=== PATIENT | male | born 1990 | race Two or more races ===

== ENCOUNTER 2018-02-12 14:24 | Emergency (ER) | payer MEDICAID ==
[~2018-02-12] VITALS: Ht 172.7 cm; Wt 79.4 kg
[2018-02-12] MEDS ORDERED: CIPROFLOXACIN HCL 500 MG TAB PO ONE (15:30)
[2018-02-12] MEDS ORDERED: IBUPROFEN 800 MG TAB PO ONE (15:30)
[2018-02-12 15:42] VITALS: BP 114/69
== END 2018-02-12 16:17 | disposition home or self-care (01) ==
LOC: ER 14:24
DX: N36.9 Urethral disorder, unspecified (principal)

== ENCOUNTER 2018-11-16 18:52 | Emergency (ER) | payer SELFPAY ==
[~2018-11-16] VITALS: Ht 177.8 cm; Wt 81.6 kg
[2018-11-16 19:23] VITALS: BP 120/74
== END 2018-11-16 23:42 | disposition home or self-care (01) ==
LOC: EDBD 18:52 → ER 18:57
DX: M62.838 Other muscle spasm (principal); V43.52XA Car driver injured in collision with other type car in traffic accident, initial encounter; Y93.89 Activity, other specified; Y99.8 Other external cause status; Y92.410 Unspecified street and highway as the place of occurrence of the external cause
CPT/HCPCS: 72040; 72100